=== PATIENT | female | born 1990 | race Caucasian/White ===

== ENCOUNTER → 2017-05-12 | Outpatient (CLI) | payer OTHER ==
[~2017-05-12] MED LIST: PEPCID20 MG PO
== END | disposition home or self-care (01) ==
LOC: CDC 09:48
DX: R94.31 Abnormal electrocardiogram [ECG] [EKG] (principal); R07.9 Chest pain, unspecified; R06.00 Dyspnea, unspecified
CPT/HCPCS: 93000

== ENCOUNTER 2017-05-13 12:01 | Emergency (ER) | payer OTHER ==
[~2017-05-13] VITALS: Ht 162.6 cm; Wt 81.0 kg
[2017-05-13 13:01] LABS: HEMATOCRIT 34.6 % (36.0-46.0); HEMOGLOBIN 12.4 G/DL (11.9-15.5); MCH 32.9 PG (29.0-34.0); MCHC 35.8 G/DL (30.0-36.0); MCV 91.8 FL (83-99); PLATELET COUNT 71 K/uL (156-360); RBC DIS.WIDTH-CV 12.5 % (11.8-14.6); RBC DIS.WIDTH-SD 41.2 % (39-53); RED BLOOD COUNT 3.77 M/uL (3.80-5.20)
[2017-05-13 13:07] LABS: CHLORIDE 103 mEq/L (99-109); POTASSIUM 3.4 mEq/L (3.7-5.4); SODIUM 135 mEq/L (136-147)
[2017-05-13 13:08] LABS: GLUCOSE 126 mg/dL (70-99)
[2017-05-13 13:12] LABS: CREATININE 0.7 mg/dL (0.6-1.3); GFR ESTIMATE (CALCULATED) > 59 mL/min/
[2017-05-13 13:13] LABS: UREA NITROGEN (BUN) 11 mg/dL (9-23)
[2017-05-13] MEDS ORDERED: PEPCID20 MG PO (16:51)
[2017-05-13 17:26] VITALS: BP 157/93
== END 2017-05-13 17:28 | disposition home or self-care (01) ==
LOC: EME 12:01 → RME 12:01
PROVIDERS: Physician Assistant
DX: O26.893 Other specified pregnancy related conditions, third trimester (principal); R07.89 Other chest pain; O99.613 Diseases of the digestive system complicating pregnancy, third trimester; K21.9 Gastro-esophageal reflux disease without esophagitis; Z3A.32 32 weeks gestation of pregnancy
CPT/HCPCS: 71046; 71275; 80048; 85027; 85379; 93005; 99281; 99285

== ENCOUNTER 2017-05-15 07:14 | Inpatient (IN) | payer OTHER ==
[2017-05-15] VITALS (13 sets, daily range): BP systolic 118–188; BP diastolic 58–103
[~2017-05-15] VITALS: Ht 157.5 cm; Wt 81.8 kg
[2017-05-15 07:50] LABS: BASOPHIL (%) 0.2 % (0-1); EOSINOPHIL (%) 0.5 % (0-5); EOSINOPHIL COUNT 0.1 K/uL (0-0.3); HEMATOCRIT 36.5 % (36.0-46.0); HEMOGLOBIN 12.9 G/DL (11.9-15.5); IMMATURE GRANULOCYTE (%) 0.6 % (0.0-0.7); LYMPHOCYTE (%) 7.2 % (15-42); MCH 32.6 PG (29.0-34.0); MCHC 35.3 G/DL (30.0-36.0); MCV 92.2 FL (83-99); MONOCYTE (%) 3.7 % (3-12); MONOCYTE COUNT 0.5 K/uL (0-0.8); NEUTROPHIL (%) 87.8 % (45-76); NEUTROPHIL COUNT 12.6 K/uL (1.8-6.4); PLATELET COUNT 63 K/uL (156-360); RBC DIS.WIDTH-CV 12.6 % (11.8-14.6); RBC DIS.WIDTH-SD 42.2 % (39-53); RED BLOOD COUNT 3.96 M/uL (3.80-5.20); WHITE BLOOD COUNT 14.3 K/uL (4.1-10.2)
[2017-05-15 08:03] LABS: CHLORIDE 104 mEq/L (99-109); SODIUM 134 mEq/L (136-147)
[2017-05-15 08:09] LABS: CREATININE 0.7 mg/dL (0.6-1.3); GFR ESTIMATE (CALCULATED) > 59 mL/min/; UREA NITROGEN (BUN) 11 mg/dL (9-23)
[2017-05-15 08:10] LABS: TROP-I INTERPRETATION NEGATIVE; TROPONIN-I 0.02 ng/mL (0.0-0.30)
[2017-05-15 08:15] LABS: GLUCOSE 83 mg/dL (70-99); POTASSIUM 4.6 mEq/L (3.7-5.4)
[2017-05-15 09:22] LABS: ALBUMIN 3.3 g/dL (3.2-4.8)
[2017-05-15 09:25] LABS: TOTAL PROTEIN 6.5 g/dL (6.4-8.3)
[2017-05-15 09:27] LABS: TOTAL BILIRUBIN 0.7 mg/dL (0.0-1.0)
[2017-05-15 09:28] LABS: ALKALINE PHOSPHATASE 175 IU/L (3-129)
[2017-05-15 09:30] LABS: AST (GOT) 272 IU/L (2-34); DIRECT BILIRUBIN 0.2 mg/dL (0.0-0.3)
[2017-05-15 09:31] LABS: ALT (GPT) 252 IU/L (3-49)
[2017-05-15 10:00] LABS: BACTERIA NONE SEEN /HPF; EPITHELIAL CELLS 1+ /HPF; HYALINE CASTS 0-5 /LPF; MUCUS TRACE /LPF; WHITE BLOOD CELLS 0-5 /HPF (0-5)
[2017-05-15 11:40] LABS: BASOPHIL (%) 0.2 % (0-1); EOSINOPHIL (%) 0.2 % (0-5); HEMATOCRIT 35.6 % (36.0-46.0); HEMOGLOBIN 12.6 G/DL (11.9-15.5); IMMATURE GRANULOCYTE (%) 0.8 % (0.0-0.7); LYMPHOCYTE (%) 5.5 % (15-42); LYMPHOCYTE COUNT 0.7 K/uL (1.0-2.8); MCH 32.6 PG (29.0-34.0); MCHC 35.4 G/DL (30.0-36.0); MONOCYTE (%) 4.5 % (3-12); MONOCYTE COUNT 0.6 K/uL (0-0.8); NEUTROPHIL (%) 88.8 % (45-76); NEUTROPHIL COUNT 11.5 K/uL (1.8-6.4); RBC DIS.WIDTH-CV 12.9 % (11.8-14.6); RBC DIS.WIDTH-SD 42.7 % (39-53); RED BLOOD COUNT 3.87 M/uL (3.80-5.20)
[2017-05-15 11:44] LABS: FIBRINOGEN 463 mg/dL (150-450); PTT 29.2 SEC (25-37)
[2017-05-15 12:05] LABS: IMM.PLATELET FRACTION 9.3 (1-7); PLAT.SUFFICIENCY DECREASED
[2017-05-15 12:34] LABS: PLATELET COUNT 40 K/uL (156-360)
[2017-05-15 12:44] LABS: MAGNESIUM 1.5 mg/dL (1.3-2.7)
[2017-05-15] MEDS ORDERED: IBUPROFEN800 MG PO (15:44)
[2017-05-15] MEDS ORDERED: PERCOCET 5/31 TABLET PO (15:44)
[2017-05-15 18:39] LABS: BASOPHIL (%) 0.2 % (0-1); EOSINOPHIL (%) 0.1 % (0-5); HEMATOCRIT 29.2 % (36.0-46.0); IMMATURE GRANULOCYTE (%) 1.6 % (0.0-0.7); LYMPHOCYTE (%) 5.3 % (15-42); LYMPHOCYTE COUNT 0.6 K/uL (1.0-2.8); MCHC 36.3 G/DL (30.0-36.0); MONOCYTE (%) 1.7 % (3-12); MONOCYTE COUNT 0.2 K/uL (0-0.8); NEUTROPHIL (%) 91.1 % (45-76); NEUTROPHIL COUNT 10.7 K/uL (1.8-6.4); RBC DIS.WIDTH-CV 13.2 % (11.8-14.6); RBC DIS.WIDTH-SD 43.2 % (39-53); RED BLOOD COUNT 3.21 M/uL (3.80-5.20); WHITE BLOOD COUNT 11.8 K/uL (4.1-10.2)
[2017-05-15 19:22] LABS: IMM.PLATELET FRACTION 13.4 (1-7); PLAT.SUFFICIENCY VERY DECREASED; PLATELET COUNT 40 K/uL (156-360)
[2017-05-15 19:24] LABS: HEMOGLOBIN 10.6 G/DL (11.9-15.5)
[2017-05-16] VITALS (18 sets, daily range): BP systolic 103–157; BP diastolic 63–90
[2017-05-16 00:16] LABS: BASOPHIL (%) 0.2 % (0-1); EOSINOPHIL (%) 0.1 % (0-5); HEMATOCRIT 27.4 % (36.0-46.0); HEMOGLOBIN 9.6 G/DL (11.9-15.5); IMMATURE GRANULOCYTE (%) 1.1 % (0.0-0.7); LYMPHOCYTE (%) 6.1 % (15-42); MCH 32.1 PG (29.0-34.0); MCV 91.6 FL (83-99); MONOCYTE (%) 2.1 % (3-12); MONOCYTE COUNT 0.3 K/uL (0-0.8); NEUTROPHIL (%) 90.4 % (45-76); NEUTROPHIL COUNT 14.6 K/uL (1.8-6.4); RBC DIS.WIDTH-CV 13.5 % (11.8-14.6); RBC DIS.WIDTH-SD 45.2 % (39-53); RED BLOOD COUNT 2.99 M/uL (3.80-5.20); WHITE BLOOD COUNT 16.2 K/uL (4.1-10.2)
[2017-05-16 01:55] LABS: IMM.PLATELET FRACTION 18.7 (1-7); PLAT.SUFFICIENCY VERY DECREASED; PLATELET COUNT 37 K/uL (156-360)
[2017-05-16 04:06] LABS: UR CREATININE CONCENTRATION 22.6 MG/DL
[2017-05-16 06:20] LABS: BASOPHIL (%) 0.2 % (0-1); EOSINOPHIL (%) 0 % (0-5); HEMATOCRIT 26.6 % (36.0-46.0); HEMOGLOBIN 9.4 G/DL (11.9-15.5); IMMATURE GRANULOCYTE (%) 1.2 % (0.0-0.7); LYMPHOCYTE (%) 6.1 % (15-42); LYMPHOCYTE COUNT 1.2 K/uL (1.0-2.8); MCH 32.6 PG (29.0-34.0); MCHC 35.3 G/DL (30.0-36.0); MCV 92.4 FL (83-99); MONOCYTE (%) 3.1 % (3-12); MONOCYTE COUNT 0.6 K/uL (0-0.8); NEUTROPHIL (%) 89.4 % (45-76); NEUTROPHIL COUNT 16.9 K/uL (1.8-6.4); RBC DIS.WIDTH-CV 13.4 % (11.8-14.6); RBC DIS.WIDTH-SD 45.2 % (39-53); RED BLOOD COUNT 2.88 M/uL (3.80-5.20); WHITE BLOOD COUNT 18.9 K/uL (4.1-10.2)
[2017-05-16 06:45] LABS: ALBUMIN 2.7 G/DL (3.2-4.8); ALKALINE PHOSPHATASE 115 IU/L (3-129); ALT (GPT) 288 IU/L (3-49); AST (GOT) 249 IU/L (2-34); CHLORIDE 100 MEQ/L (99-109); CREATININE 0.7 MG/DL (0.6-1.3); GFR ESTIMATE (CALCULATED) > 59 mL/min/; POTASSIUM 4.7 MEQ/L (3.7-5.4); SODIUM 131 MEQ/L (136-147); TOTAL BILIRUBIN 0.5 MG/DL (0.0-1.0); TOTAL PROTEIN 5.1 G/DL (6.4-8.3); UREA NITROGEN (BUN) 15 mg/dL (9-23)
[2017-05-16 06:48] LABS: GLUCOSE 109 mg/dL (70-99)
[2017-05-16 07:05] LABS: IMM.PLATELET FRACTION 15.3 (1-7); PLAT.SUFFICIENCY DECREASED; PLATELET COUNT 43 K/uL (156-360)
[2017-05-16 12:06] LABS: BASOPHIL (%) 0.1 % (0-1); EOSINOPHIL (%) 0 % (0-5); HEMATOCRIT 26.7 % (36.0-46.0); HEMOGLOBIN 9.4 G/DL (11.9-15.5); IMMATURE GRANULOCYTE (%) 1.7 % (0.0-0.7); LYMPHOCYTE (%) 7.2 % (15-42); LYMPHOCYTE COUNT 1.4 K/uL (1.0-2.8); MCHC 35.2 G/DL (30.0-36.0); MCV 93.7 FL (83-99); MONOCYTE (%) 4.1 % (3-12); MONOCYTE COUNT 0.8 K/uL (0-0.8); NEUTROPHIL (%) 86.9 % (45-76); NEUTROPHIL COUNT 17.1 K/uL (1.8-6.4); RBC DIS.WIDTH-CV 13.7 % (11.8-14.6); RBC DIS.WIDTH-SD 46.2 % (39-53); RED BLOOD COUNT 2.85 M/uL (3.80-5.20); WHITE BLOOD COUNT 19.7 K/uL (4.1-10.2)
[2017-05-16 12:11] LABS: PLATELET COUNT 61 K/uL (156-360)
[2017-05-16] MEDS ORDERED: PRENATAL TABLE1 EAC3 PO (18:25)
[2017-05-17 02:31] VITALS: BP 133/84
[2017-05-17 06:04] LABS: BASOPHIL (%) 0.2 % (0-1); BASOPHIL COUNT 0.1 K/uL (0-0.1); EOSINOPHIL (%) 0.6 % (0-5); EOSINOPHIL COUNT 0.1 K/uL (0-0.3); HEMATOCRIT 28.4 % (36.0-46.0); HEMOGLOBIN 9.6 G/DL (11.9-15.5); LYMPHOCYTE (%) 14.3 % (15-42); LYMPHOCYTE COUNT 3.1 K/uL (1.0-2.8); MCH 32.2 PG (29.0-34.0); MCHC 33.8 G/DL (30.0-36.0); MCV 95.3 FL (83-99); MONOCYTE COUNT 0.9 K/uL (0-0.8); NEUTROPHIL (%) 77.9 % (45-76); NEUTROPHIL COUNT 16.8 K/uL (1.8-6.4); NRBC (%) 0.3 /100 WBC (0-0); RBC DIS.WIDTH-CV 14.3 % (11.8-14.6); RBC DIS.WIDTH-SD 48.3 % (39-53); RED BLOOD COUNT 2.98 M/uL (3.80-5.20); WHITE BLOOD COUNT 21.6 K/uL (4.1-10.2)
[2017-05-17 06:07] LABS: PLATELET COUNT 100 K/uL (156-360)
[2017-05-17 06:27] LABS: ALBUMIN 3.1 G/DL (3.2-4.8); ALKALINE PHOSPHATASE 118 IU/L (3-129); ALT (GPT) 217 IU/L (3-49); AST (GOT) 99 IU/L (2-34); CHLORIDE 104 MEQ/L (99-109); CREATININE 0.8 MG/DL (0.6-1.3); GFR ESTIMATE (CALCULATED) > 59 mL/min/; GLUCOSE 83 mg/dL (70-99); POTASSIUM 4.7 MEQ/L (3.7-5.4); SODIUM 137 MEQ/L (136-147); TOTAL BILIRUBIN 0.5 MG/DL (0.0-1.0); TOTAL PROTEIN 5.6 G/DL (6.4-8.3); UREA NITROGEN (BUN) 17 mg/dL (9-23)
[2017-05-17 11:50] VITALS: BP 158/92
[2017-05-17 14:05] VITALS: BP 134/79
[2017-05-18 05:53] LABS: BASOPHIL (%) 0.2 % (0-1); EOSINOPHIL (%) 1.6 % (0-5); EOSINOPHIL COUNT 0.2 K/uL (0-0.3); HEMATOCRIT 24.1 % (36.0-46.0); HEMOGLOBIN 8.1 G/DL (11.9-15.5); IMMATURE GRANULOCYTE (%) 2.1 % (0.0-0.7); LYMPHOCYTE (%) 16.8 % (15-42); LYMPHOCYTE COUNT 2.6 K/uL (1.0-2.8); MCH 32.4 PG (29.0-34.0); MCHC 33.6 G/DL (30.0-36.0); MCV 96.4 FL (83-99); MONOCYTE (%) 3.9 % (3-12); MONOCYTE COUNT 0.6 K/uL (0-0.8); NEUTROPHIL (%) 75.4 % (45-76); NEUTROPHIL COUNT 11.7 K/uL (1.8-6.4); NRBC (%) 0.3 /100 WBC (0-0); PLATELET COUNT 105 K/uL (156-360); RBC DIS.WIDTH-CV 14.4 % (11.8-14.6); RBC DIS.WIDTH-SD 49.9 % (39-53); WHITE BLOOD COUNT 15.5 K/uL (4.1-10.2)
[2017-05-18 07:06] LABS: ALBUMIN 2.6 G/DL (3.2-4.8); ALKALINE PHOSPHATASE 99 IU/L (3-129); ALT (GPT) 113 IU/L (3-49); CHLORIDE 105 MEQ/L (99-109); CREATININE 0.6 MG/DL (0.6-1.3); GFR ESTIMATE (CALCULATED) > 59 mL/min/; GLUCOSE 76 mg/dL (70-99); POTASSIUM 4.6 MEQ/L (3.7-5.4); SODIUM 137 MEQ/L (136-147); UREA NITROGEN (BUN) 17 mg/dL (9-23)
[2017-05-18 07:10] VITALS: BP 133/71
[2017-05-18 07:11] LABS: AST (GOT) 35 IU/L (2-34); TOTAL BILIRUBIN 0.3 MG/DL (0.0-1.0); TOTAL PROTEIN 4.7 G/DL (6.4-8.3)
[2017-05-18 11:30] VITALS: BP 131/82
[2017-05-18 16:22] VITALS: BP 136/81
[2017-05-18 23:45] VITALS: BP 143/62
[2017-05-19 03:30] VITALS: BP 124/77
[2017-05-19 05:56] LABS: HEMATOCRIT 24.7 % (36.0-46.0); HEMOGLOBIN 8.3 G/DL (11.9-15.5); MCH 32.7 PG (29.0-34.0); MCHC 33.6 G/DL (30.0-36.0); MCV 97.2 FL (83-99); NRBC (%) 0.4 /100 WBC (0-0); RBC DIS.WIDTH-CV 14.4 % (11.8-14.6); RBC DIS.WIDTH-SD 49.6 % (39-53); RED BLOOD COUNT 2.54 M/uL (3.80-5.20); WHITE BLOOD COUNT 12.7 K/uL (4.1-10.2)
[2017-05-19 06:13] LABS: PLATELET COUNT 150 K/uL (156-360)
[2017-05-19 06:27] LABS: ALBUMIN 2.6 G/DL (3.2-4.8); ALKALINE PHOSPHATASE 94 IU/L (3-129); ALT (GPT) 92 IU/L (3-49); AST (GOT) 25 IU/L (2-34); CHLORIDE 105 MEQ/L (99-109); CREATININE 0.8 MG/DL (0.6-1.3); GFR ESTIMATE (CALCULATED) > 59 mL/min/; GLUCOSE 78 mg/dL (70-99); POTASSIUM 5.1 MEQ/L (3.7-5.4); SODIUM 139 MEQ/L (136-147); TOTAL PROTEIN 4.9 G/DL (6.4-8.3); UREA NITROGEN (BUN) 15 mg/dL (9-23)
[2017-05-19 06:28] LABS: TOTAL BILIRUBIN 0.4 MG/DL (0.0-1.0)
[2017-05-19 07:20] VITALS: BP 143/86
[2017-05-19 10:57] VITALS: BP 134/62
[2017-05-19] MEDS ORDERED: IBUPROFEN800 MG PO (10:57)
[2017-05-19] MEDS ORDERED: ZOLOFT25 MG PO (10:57)
[2017-05-19] MEDS ORDERED: ENDOCET 5-3251 EACH PO (10:57)
[2017-05-19 14:41] VITALS: BP 137/80
== END 2017-05-19 18:14 | disposition home or self-care (01) | DRG 766 ==
LOC: LDRP-OP 07:14 → EME 07:14 → EDSTATUS 10:04 → 2WEST 10:05
PROVIDERS: Emergency Medicine; Obstetrics & Gynecology; Obstetrics & Gynecology Gynecology
DX: O14.24 HELLP syndrome, complicating childbirth (principal); O69.81X0 Labor and delivery complicated by cord around neck, without compression, not applicable or unspecified; O99.344 Other mental disorders complicating childbirth; F41.9 Anxiety disorder, unspecified; F42.9 Obsessive-compulsive disorder, unspecified; O99.62 Diseases of the digestive system complicating childbirth; K21.9 Gastro-esophageal reflux disease without esophagitis; R94.31 Abnormal electrocardiogram [ECG] [EKG]; Z3A.32 32 weeks gestation of pregnancy; Z37.0 Single live birth
CPT/HCPCS: 71046; 71275; 80048; 80053; 80076; 81015; 82570; 83735; 84156; 84484; 85025; 85025 91; 85027; 85379; 85384; 85610; 85730; 86850; 86900; 86901; 87081; 88307; 93000; 93005; 93306; 99281; 99285; J0330; J0690; J0702; J1170; J2270; J2405; J2540; J2590; J2710; J3010; J3475; J7120; S0028